=== PATIENT | male | born 1985 | race Caucasian/White ===

== ENCOUNTER 2020-03-20 10:54 | Emergency (ER) | payer OTHER ==
--- NOTE | 2020-03-20 11:45 | XRAY Report ---
PROCEDURE: Ankle 3 View RT INDICATIONS: injury to right ankle TECHNIQUE: 3 views of the ankle were acquired. COMPARISON: None. FINDINGS: Bones: No fractures or dislocations. Ankle mortise is normally aligned. No suspicious bony lesions . Soft tissues: No tibiotalar joint effusion. Achilles tendon appears normal. Soft tissue swelling o tara the lateral malleolus. IMPRESSION: No acute osseous abnormalities. Reviewed by: Deidre Garcia MD on 03/20/2020 11:44 AM PDT Approved by: Deidre Garcia MD on 03/20/2020 11:44 AM PDT Station ID: [id number]
--- NOTE | 2020-03-20 13:11 | ED Physician Documentation ---
PD HPI LOWER EXT INJURY - Stated complaint Stated Complaint: R FOOT INJ - Chief complaint Chief Complaint: Ext Problem - History obtained from History obtained from: Patient - History of Present Illness PD HPI LOW EXT INJURY LOCATION: Right, Ankle Type of injury: Twist Where injury occurred: Home Timing - onset: Today Timing - duration: Minutes Timing - details: Abrupt onset, Still present Improved by: Rest, Immobilization Worsened by: Moving, Palpating Associated symptoms: Swelling. No: Weakness, Numbness Contributing factors: No: Anticoagulated Similar symptoms before: Has not had sx before Recently seen: Not recently seen - Additional information Additional information: Previously well 34-year-old male was stepping down a step and twisted his right ankle. He has pain over the lateral aspect of the ankle and he has not been able to bear weight since. He has not had a fracture previously Review of Systems Constitutional: denies: Fever Nose: denies: Congestion Respiratory: denies: Dyspnea, Cough GI: denies: Vomiting PD PAST MEDICAL HISTORY - Allergies Allergies/Adverse Reactions: Allergies Allergy/AdvReac Type Severity Reaction Status Date / Time No Known Drug Allergies Allergy Verified 03/20/20 11:11 - Social History Does the pt smoke?: No Smoking Status: Never smoker PD ED PE NORMAL - Vitals Vital signs reviewed: Yes (Hypertensive) - General General: Alert and oriented X 3, No acute distress, Well developed/nourished - HEENT HEENT: Atraumatic, PERRL, EOMI - Respiratory Respiratory: No respiratory distress - Derm Derm: Normal color, Warm and dry, No rash - Extremities Extremities: Other (Swelling and point tenderness over the talofibular ligament on the right ankle. There is no tenderness to the proximal fifth there is minimal tenderness to the medial malleolus the patient is able to flex and extend the ankle has pain with inversion over the talofibular ligament) - Neuro Neuro: Alert and oriented X 3, dial refinisher 2-12 intact, No motor deficit, No sensory deficit, Normal speech Eye Opening: Spontaneous Motor: Obeys Commands Verbal: Oriented GCS Score: 15 - Psych Psych: Normal mood, Normal affect Results - Vitals Vitals: Vital Signs - 24 hr 03/20/20 11:11 Temperature 36.6 C Heart Rate 85 Respiratory 16 Rate Blood Pressure 147/96 H O2 Saturation 99 Oxygen O2 Source Room air - Rads (name of study) Right ankle Radiology: Prelim report reviewed (Impression: No acute osseous abnormalities.), EMP read indepedently, See rad report Procedures - Splint (location) Right ankle Splint applied by: Physician Type of splint: Ankle airsplint Other: Patient tolerated well, No complications, Neurovascular intact, Good alignment PD MEDICAL DECISION MAKING - ED course Complexity details: reviewed results, re-evaluated patient, considered differential, d/w patient ED course: 34-year-old male with a sprained ankle is placed into an ankle stirrup instructed wear it 02/04 for 2 weeks. Departure - Departure Disposition: 01 Home, Self Care Clinical Impression: Ankle sprain Qualifiers: Encounter type: initial encounter Involved ligament of ankle: anterior talofibular ligament Laterality: right Qualified Code(s): S93.491A - Sprain of other ligament of right ankle, initial encounter Condition: Stable Instructions: ED Sprain Ankle W X Ray Follow-Up: your, doctor [Other]
[2020-03-20 13:36] VITALS: BP 140/90
== END 2020-03-20 13:34 | disposition home or self-care (01) ==
LOC: ED 10:54
DX: S93.491A Sprain of other ligament of right ankle, initial encounter (principal); X50.1XXA Overexertion from prolonged static or awkward postures, initial encounter; Y92.009 Unspecified place in unspecified non-institutional (private) residence as the place of occurrence of the external cause
CPT/HCPCS: 29515